=== PATIENT | female | born 1990 | race African-American/Black ===

== ENCOUNTER 2019-11-27 11:42 | Outpatient (CLI) | payer BC, OTHER ==
[2019-11-28 11:38] LABS: SARS-CoV-2 MS2 Positive; SARS-CoV-2 N Gene Negative; SARS-CoV-2 S Gene Negative; SARS-CoV-2 orf1ab Negative
== END 2019-11-27 11:43 | disposition home or self-care (01) ==
LOC: SCSLAB 11:42
PROVIDERS: ATTEND Family Medicine
DX: Z01.812 Encounter for preprocedural laboratory examination (principal); Z11.59 Encounter for screening for other viral diseases
CPT/HCPCS: 87635; U0003

== ENCOUNTER 2019-11-30 21:14 | Inpatient (IN) | payer OTHER ==
[2019-11-30] MEDS ORDERED: NS w/ Oxytocin 10 units 500 ML IV SCH ×2 (21:27→21:45)
[2019-11-30] MEDS ORDERED: Methylergonovine 0.2 MG/ML VIAL IM PRN (21:27)
[2019-11-30] MEDS ORDERED: Misoprostol 200 MCG TAB PR PRN (21:27)
[2019-11-30] MEDS ORDERED: Diphenoxylate HCl/Atropine Tablet PO PRN (21:27)
[2019-11-30] MEDS ORDERED: Carboprost 250 MCG/ML AMP IM PRN (21:27)
[2019-11-30] MEDS ORDERED: HYDROcodone/Acetaminophen 5/325 mg Tablet PO PRN (21:27)
[2019-11-30] MEDS ORDERED: Ondansetron PF 4 MG/2 ML Vial IVP PRN (21:27)
[2019-11-30] MEDS ORDERED: Promethazine HCl 25 MG/ML VIAL IM PRN (21:27)
[2019-11-30] MEDS ORDERED: Lidocaine 1% (PF) 30 ML VIAL SC PRN (21:27)
[2019-11-30] MEDS ORDERED: Ibuprofen 800 MG TAB PO PRN (21:27)
[2019-11-30] MEDS ORDERED: hydrALAZINE 20 MG/ML VIAL SLOW IVP PRN (21:27)
[2019-11-30] MEDS: Lactated Ringer's 1,000 ML IV SCH (21:34)
[2019-11-30 21:53] VITALS: BMI 37.8
[2019-11-30 21:53] LABS: Hemoglobin 10.2 g/dL (12.0-16.0); Mean Corpuscular HGB CONC 32.7 g/dL (32.0-36.0); Mean Corpuscular Hemoglobin 26.4 pg (27.0-31.0); Mean Corpuscular Volume 80.8 fL (78.0-98.0); Mean Platelet Volume 9.4 fL (7.4-10.4); Platelet Count 253 thou/uL (130-400); RBC Distribution Width 13.4 % (11.5-14.5); Red Blood Cell (RBC) Count 3.87 mill/uL (4.20-5.40); White Blood Cell (WBC) Count 6.4 thou/uL (4.8-10.8)
[2019-11-30] MEDS: Misoprostol 100 MCG TAB PO SCH (22:00)
[2019-11-30 23:08] LABS: Syphilis Antibody Nonreactive (Nonreactive); Syphilis Antibody Index 0.05 S/CO (<1.00 Non-Reactive)
[2019-12-01 01:46] LABS: HBSAg Index 0.14 S/CO (0-0.99); Hep B Surf Ag Non-Reactive S/CO (NonReactive)
[2019-12-01] MEDS: Misoprostol 100 MCG TAB PO SCH ×2 (02:03→10:04)
[2019-12-01] MEDS: Butorphanol Tartrate 1 MG/ML VIAL SLOW IVP PRN ×2 (03:28→04:57)
[2019-12-01] MEDS ORDERED: Fentanyl 4 mcg/Bup 0.1% Cadd 100 ML ONE ×3 (08:26→17:57)
[2019-12-01] MEDS ORDERED: EPHEDRINE 25 MG/5 ML SYRINGE SLOW IVP PRN (09:22)
[2019-12-01] MEDS ORDERED: diphenhydrAMINE 50 MG/ML VIAL IVP PRN (09:22)
[2019-12-01] MEDS ORDERED: Ondansetron PF 4 MG/2 ML Vial IVP PRN ×2 (09:22→18:04)
[2019-12-01] MEDS ORDERED: Lactated Ringer's 500 ML IV PRN (09:22)
[2019-12-01] MEDS ORDERED: Promethazine HCl 25 MG/ML VIAL IM PRN (09:22)
[2019-12-01] MEDS ORDERED: Naloxone HCl 0.4 mg/ml Vial IVP PRN ×2 (09:22)
[2019-12-01] MEDS ORDERED: Acetaminophen 325 MG TAB PO PRN (09:22)
[2019-12-01] MEDS ORDERED: Communication Order-Pharmacy FS SCH (09:30)
[2019-12-01] MEDS ORDERED: Bupivacaine/Epinephrine 0.25% 30 ML VIAL ONE (10:01)
[2019-12-01] MEDS: Lactated Ringer's 1,000 ML IV SCH (10:02)
[2019-12-01] MEDS: NS / Oxytocin 40 units/1000ml 1,000 ML IV PRN ×2 (18:01→22:55)
[2019-12-01] MEDS ORDERED: diphenhydrAMINE 25 MG CAP PO PRN (18:04)
[2019-12-01] MEDS ORDERED: Lanolin Ointment 7 GM TUBE TOP PRN (18:04)
[2019-12-01] MEDS ORDERED: NS / Oxytocin 40 units/1000ml 1,000 ML IV SCH (18:04)
[2019-12-01] MEDS ORDERED: Milk Of Magnesia 30 ML UDCUP PO PRN (18:04)
[2019-12-01] MEDS ORDERED: hydrALAZINE 20 MG/ML VIAL SLOW IVP PRN (18:04)
[2019-12-01] MEDS ORDERED: HYDROcodone/Acetaminophen 5/325 mg Tablet PO PRN ×2 (18:04)
[2019-12-01] MEDS ORDERED: Bisacodyl 10 MG SUPP PR PRN (18:04)
[2019-12-01] MEDS: Docusate Calcium (SURFAK) 240 MG CAP PO SCH (22:40)
[2019-12-01] MEDS: Ibuprofen 800 MG TAB PO SCH (22:40)
[2019-12-02 05:53] LABS: Hemoglobin 9.2 g/dL (12.0-16.0); Mean Corpuscular HGB CONC 33.7 g/dL (32.0-36.0); Mean Corpuscular Hemoglobin 27.3 pg (27.0-31.0); Mean Platelet Volume 9.2 fL (7.4-10.4); Platelet Count 201 thou/uL (130-400); RBC Distribution Width 13.2 % (11.5-14.5); Red Blood Cell (RBC) Count 3.36 mill/uL (4.20-5.40); White Blood Cell (WBC) Count 11.2 thou/uL (4.8-10.8)
[2019-12-02] MEDS: Ibuprofen 800 MG TAB PO SCH ×2 (06:04→14:03)
[2019-12-02] MEDS: Lactated Ringer's 1,000 ML IV SCH (07:38)
[2019-12-02] MEDS ORDERED: Adacel (T-DAP) 0.5 ML SYRINGE IM ONE (09:00)
[2019-12-02] MEDS ORDERED: Prenatal Vitamin 1 TAB PO SCH (09:00)
[2019-12-02] MEDS: Docusate Calcium (SURFAK) 240 MG CAP PO SCH (09:36)
[2019-12-02] MEDS: Ferrous Sulfate 325 MG TAB PO SCH ×2 (09:36→17:19)
[2019-12-02 12:31] VITALS: BP 116/66; TEMP 98.2
== END 2019-12-02 19:07 | disposition home or self-care (01) | DRG 807 ==
LOC: L&D 21:14 → 3SW 12-01 21:25
PROVIDERS: ADMIT Family Medicine; ATTEND Family Medicine
PROC: 10E0XZZ Delivery of Products of Conception, External Approach (ICD-10-PCS; principal; 2019-11-30)
PROC: 10907ZC Drainage of Amniotic Fluid, Therapeutic from Products of Conception, Via Natural or Artificial Opening (ICD-10-PCS; 2019-11-30)
PROC: 0HQ9XZZ Repair Perineum Skin, External Approach (ICD-10-PCS; 2019-11-30)
DX: O76 Abnormality in fetal heart rate and rhythm complicating labor and delivery (principal); Z37.0 Single live birth; Z3A.40 40 weeks gestation of pregnancy; O70.0 First degree perineal laceration during delivery
CPT/HCPCS: 36415; 51702; 85027; 86780; 86850; 86900; 86901; 87340; 87635; J0595; J2590; U0003